=== PATIENT | male | born 1985 | race Caucasian/White ===

== ENCOUNTER 2020-06-15 13:47 | Emergency (ER) | payer BC, SELFPAY ==
[2020-06-15 13:53] VITALS: BP 137/92; PULSE 83; RESP 14; TEMP 36.8; O2SAT 96; BMI 25.0
--- NOTE | 2020-06-15 14:03 | XRR_ITS ---
PROCEDURE INFORMATION: Exam: XR Nasal Bones, Minimum of 3 Views, Complete Exam date and time: 06/15/2020 2:20 PM Age: 35 years old Clinical indication: Injury or trauma; Injury history: Cow kicked gate into face; Initial encounter; Blunt trauma (contusions or hematomas); Forehead and nose and lip/oral cavity; Both upper and lower; Other: Pain, swelling; Injury date: 06/15/20; Additional info: Pain swelling TECHNIQUE: Imaging protocol: XR of the nasal bones, minimum of 3 views. Complete exam. COMPARISON: No relevant prior studies available. FINDINGS: Sinuses: Well aerated. No opacification. Bones/joints: No fracture. Soft tissues: Unremarkable. XR/XR nasal bones min 3V 20632 IMPRESSION: Unremarkable. No fracture evident.
--- NOTE | 2020-06-15 14:11 | ED_ITS ---
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 He was stunned momentarily but did not have any loss of consciousness he has some swelling across the bridge of his nose and little bit of an abrasion across the left cheek he denies any difficulty with vision. He denies any other injuries. 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) Associated symptoms: Reports no associated symptoms and epistaxis; Denies abdominal pain, anorexia, back pain, chest pain, chills, confusion, cough, dental pain, diaphoresis, difficulty breathing, dizziness, fever(s), headache(s), nausea, seizures, short of breath, syncope, visual disturbances, vomiting or weakness Review of Systems Const: Denies: fever(s), chills or diaphoresis ENMT: Reports: epistaxis; Denies: dental pain Card: Denies: chest pain or syncope Resp: Denies: dyspnea, productive cough or non-productive cough GI: Denies: abdominal pain, nausea or vomiting : Denies: flank pain, dysuria, urinary frequency or urinary urgency Musc: Denies: back pain Skin/Breast: Denies: rash or pruritus Neuro: Denies: headache(s), dizziness or confusion Physical Exam Const: COMMON NORMALS: no acute distress GENERAL APPEARANCE: cooperative and comfortable ORIENTATION/CONSCIOUSNESS: Yes awake, Yes oriented to person, Yes oriented to place and Yes oriented to time HENMT: COMMON NORMALS: normocephalic, atraumatic, hearing grossly normal bilaterally, external ears normal, EAC's normal, TM's normal bilaterally, Normal nasal mucous membranes and turbinates present and moist oral mucous membranes HEAD & SCALP: normocephalic and atraumatic NOSE: Normal nasal mucous membranes and turbinates present EXTERNAL EAR: Yes external ears normal EXTERNAL AUDITORY CANAL: EAC's normal TYMPANIC MEMBRANE: TM's normal bilaterally Eye: COMMON NORMALS: Equal, round and reactive pupils present, EOMs intact bilaterally, conjunctivae normal and no scleral icterus CONJUNCTIVA: Yes conjunctivae normal PUPIL: Yes Equal, round and reactive pupils present Neck/C-Spine: COMMON NORMALS: full ROM, no lymphadenopathy, supple and no JVD Lymph: LYMPHATIC: no lymphadenopathy noted and no lymphedema noted Resp: COMMON NORMALS: normal respiratory effort, No retractions, No use of accessory muscles and clear to auscultation bilaterally AUSCULTATION: clear to auscultation bilaterally Cardio: COMMON NORMALS: no JVD, regular rate, regular rhythm and No murmurs present (Cardio) RATE: regular rate RHYTHM: regular rhythm GI: COMMON NORMALS: Soft to palpation and No hepatosplenomegaly present AUSCULTATION: Yes normoactive bowel sounds PALPATION: Yes Soft to palpation, No Tenderness to palpation present (GI), No Guarding due to palpation present (GI) and Yes No hepatosplenomegaly present Extremity: COMMON NORMALS: normal to inspection, capillary refill normal, no clubbing, cyanosis or edema, no calf tenderness and no pedal edema Neuro: SENSORIUM/ORIENTATION: Yes oriented to person, Yes oriented to place and Yes oriented to time Skin: COMMON NORMALS: no rashes or lesions noted GENERAL SKIN EXAM: no rashes or lesions noted MDM - Trauma MDM Narrative: Medical decision making narrative: No nasal bone fractures. No evidence of any significant fracture neurologic exam intact patient advised to use diclofenac ice follow-up as needed Discharge Plan Discharge Patient Disposition: Home Clinical Impression: Blunt trauma of face Condition: Stable Prescriptions: New diclofenac sodium 75 mg tablet,delayed release (DR/EC) 75 mg PO Q12H PRN (Reason: pain) Qty: 20 RF: 0 Discharge Orders: Discharge Order (Routine); Ordered 06/15/20 Ordered By: Migue Baez Discharge Date/Time: 06/15/20 14:44 Coding Level of Care Code ED [employer] for Chg Fwd Exam Comprehensive
[2020-06-15 14:42] VITALS: BP 115/76; PULSE 88; RESP 16; O2SAT 99
== END 2020-06-15 14:44 | disposition home or self-care (01) ==
PROVIDERS: Emergency Provider Family Medicine
DX: S09.8XXA Other specified injuries of head, initial encounter (principal); W22.8XXA Striking against or struck by other objects, initial encounter
CPT/HCPCS: 12345; 70160; 99282